=== PATIENT | female | born 1945 | race African-American/Black ===

== ENCOUNTER 2019-12-29 07:30 | Inpatient (IN) ==
--- NOTE | 2019-12-22 17:29 | EKG Report ---
Test Performed on : 12/22/2019 5:18:33 PM Test Reason : PAT Blood Pressure : / mmHG Vent. Rate : 090 BPM Atrial Rate : 090 BPM P-R Int : 146 ms QRS Dur : 128 ms QT Int : 388 ms P-R-T Axes : 032 -69 018 degrees QTc Int : 474 ms Normal sinus rhythm. Right bundle branch block Left anterior fascicular block Bifascicular block Moderate voltage criteria for LVH, may be normal variant Possible Lateral infarct , age undetermined Abnormal ECG No previous ECGs available Confirmed by Can Michaels MD ([id number]) on 12/22/2019 7:55:20 PM
[2019-12-22 18:18] LABS: BASO# 0.01 X1000 (0.0-0.2); BASO% 0.2 % (0.0-0.8); EOS# 0.08 X1000 (0.0-0.7); EOS% 1.4 % (0.0-10.0); HEMOGLOBIN 11.4 g/dL (12.0-16.0); IMM GRAN# 0.02 X1000 (0.0-0.04); IMM GRAN% 0.3 % (0.0-0.5); LYMPH# 1.52 X1000 (1.2-3.4); MCH 28.6 PG (27-31); MCV 95.5 FL (81-99); MONO# 0.31 X1000 (0.11-0.59); MONO% 5.3 % (1.7-9.3); MPV 9.6 FL (7.4-10.4); NEUT% 66.8 % (42.2-75.2); PLT 392 X1000 (130-400); RBC 3.98 XMIL (4.2-5.4); RDW 15.3 % (11.5-14.5); WBC 5.84 X1000 (4.8-10.8)
[2019-12-22 18:23] LABS: PROTIME 13.3 Seconds (11.0-16.0)
[2019-12-22 18:24] LABS: HEMOGLOBIN A1C 7.3 % (4.8-6.0); PTT 30.1 Seconds (22.3-41.8)
[2019-12-22 18:29] LABS: AGAP 13; BUN 10 mg/dL (8-22); CALCIUM 10.1 mg/dL (8.8-10.2); CHLORIDE 95 mmol/L (98-107); COSMO 277; CREATININE 0.7 mg/dL (0.5-0.9); ESTIMATED GFR > 60; GLUCOSE 140 mg/dL (70-104); POTASSIUM 3.7 mmol/L (3.5-5.1); SODIUM 138 mmol/L (136-145); TCO2 30 mmol/L (25-35)
[2019-12-22 21:23] LABS: URINE SOURCE CLEAN CATCH
[2019-12-22 21:31] LABS: BILIRUBIN URINE NEGATIVE (NEGATIVE); BLOOD URINE NEGATIVE (NEGATIVE); COLOR YELLOW; GLUCOSE URINE NEGATIVE (NEGATIVE); KETONE URINE NEGATIVE (NEGATIVE); LEUKOCYTES URINE NEGATIVE (NEGATIVE); NITRITE URINE NEGATIVE (NEGATIVE); PROTEIN URINE NEGATIVE (NEGATIVE); SP GRAVITY URINE 1.012; TURBIDITY URINE CLEAR (CLEAR); UROBILINOGEN URINE NORMAL (NORMAL)
[2019-12-22 21:32] LABS: UR EPITHELIAL CELLS <10 /HPF (<10); URINE BACTERIA NEGATIVE /HPF; URINE RBC <10 /HPF (<10); URINE WBC <10 /HPF (<10)
[2020-01-05] MEDS ORDERED: PEPCID ONE (05:40)
[2020-01-05] MEDS ORDERED: REGLAN ONE (05:40)
[2020-01-05] MEDS ORDERED: COLACE ONE (05:40)
[2020-01-05] MEDS ORDERED: CELEBREX ONE (05:40)
[2020-01-05] MEDS ORDERED: LYRICA ONE (05:40)
[2020-01-05] MEDS ORDERED: KEFZOL 1 GM/D5W 1 GM/50 ML IVPB ONE (05:40)
[2020-01-05] MEDS ORDERED: LR 1,000 ML ONE (05:41)
[2020-01-05] MEDS ORDERED: FENTANYL ONE ×2 (06:36→08:04)
[2020-01-05] MEDS ORDERED: DIPRIVAN 1% ONE ×2 (06:36→08:30)
[2020-01-05] MEDS ORDERED: XYLOCAINE-MPF 2% ONE (06:36)
[2020-01-05] MEDS ORDERED: NORCURON ONE (06:47)
[2020-01-05] MEDS ORDERED: QUELICIN (DOSE) ONE (06:47)
[2020-01-05] MEDS ORDERED: SODIUM CHLORIDE 0.9% 10 ML ONE (06:48)
[2020-01-05] MEDS ORDERED: TORADOL ONE (06:49)
[2020-01-05] MEDS ORDERED: MARCAINE 0.25% PF ONE (06:49)
[2020-01-05] MEDS ORDERED: EXPAREL 1.3% ONE (06:49)
[2020-01-05] MEDS ORDERED: DURAMORPH ONE (06:49)
[2020-01-05] MEDS ORDERED: NEOSPORIN G.U. IRRIGANT ONE (06:49)
[2020-01-05] MEDS ORDERED: CYKLOKAPRON 1,000 MG/NS 1,000 MG/100 ML IVPB ONE (06:49)
[2020-01-05] MEDS ORDERED: SODIUM CHLORIDE 0.9% ONE (06:49)
[2020-01-05] MEDS ORDERED: OFIRMEV 1000 MG/ISOTONIC SOLN 1,000 MG/100 ML BOTTLE ONE (07:57)
[2020-01-05] MEDS ORDERED: DECADRON ONE (07:57)
[2020-01-05 08:07] LABS: URINE SOURCE CATH
[2020-01-05] MEDS ORDERED: ROBINUL ONE (08:10)
[2020-01-05] MEDS ORDERED: NEOSTIGMINE ONE (08:11)
[2020-01-05] MEDS ORDERED: EPHEDRINE ONE (08:12)
[2020-01-05 08:16] LABS: BILIRUBIN URINE NEGATIVE (NEGATIVE); BLOOD URINE NEGATIVE (NEGATIVE); COLOR YELLOW; GLUCOSE URINE NEGATIVE (NEGATIVE); KETONE URINE NEGATIVE (NEGATIVE); LEUKOCYTES URINE NEGATIVE (NEGATIVE); NITRITE URINE NEGATIVE (NEGATIVE); PROTEIN URINE NEGATIVE (NEGATIVE); SP GRAVITY URINE 1.005; TURBIDITY URINE CLEAR (CLEAR); UROBILINOGEN URINE NORMAL (NORMAL)
[2020-01-05 08:18] LABS: UR EPITHELIAL CELLS <10 /HPF (<10); URINE BACTERIA NEGATIVE /HPF; URINE RBC <10 /HPF (<10); URINE WBC <10 /HPF (<10)
--- NOTE | 2020-01-05 08:38 | OPERATIVE NOTE ---
PROCEDURE DATE: 01/05/2020 PREOPERATIVE DIAGNOSIS: Left glenohumeral arthritis with chronic rotator cuff tear. POSTOPERATIVE DIAGNOSIS: Left glenohumeral arthritis with chronic rotator cuff tear. PROCEDURE: Left reverse shoulder arthroplasty with DePuy Delta Xtend size 12 press-fit stem, a 38+ 3 humeral cup, a 38+ 2 mm lateralized eccentric Glenosphere and a standard metaglene. SURGEON: Dr. Denny Alarcon. UTILIZATION REVIEWER: ILEANA Bond, who is necessary for proper positioning, manipulation of extremity during the case, retraction and improved efficiency. SECOND POWDER PRESS OPERATOR: Geo Garber RN. ANESTHESIA: General. IV FLUIDS: 1000 mL lactated Ringer. ESTIMATED BLOOD LOSS: 30 mL. COMPLICATIONS: None. INDICATION: Patient is a pleasant 74-year-old female with a chronic history of pain and discomfort of the left shoulder. Radiographic studies revealed large chronic rotator cuff tear, as well as some degenerative arthritic changes. Given the patient's findings, recommendation to proceed with left reverse shoulder arthroplasty was offered. Risks and benefits of surgery were explained, including the risks of anesthesia, , bleeding, infection, failure to relieve pain, postoperative stiffness, nerve injury, blood clots, and other imponderables. All questions were answered. The patient's family wished to proceed with surgery. DETAILS OF THE OPERATION: The patient was taken to the operating room and placed supine on the operating table. Once adequate anesthesia was obtained, patient placed in semi-Pierre beach-chair position. The left shoulder was subsequently prepped and draped in the usual sterile fashion. Standard deltopectoral incision made with a skin knife. Hemostasis was obtained using electrocautery. The deltopectoral interval was then developed. Retractors were then placed. The clavipectoral fascia was elevated and retractors placed deep to the conjoint tendon. The subscapularis tendon was then identified. Stay sutures placed. It was released approximately a centimeter medial to its insertion. The shoulder was then dislocated anteriorly. The patient had the evidence of the chronic retracted rotator cuff tear superiorly. A starting reamer was then placed in the intramedullary canal. This was followed by sequential reaming up to a size 12. The intramedullary guide with the proximal humeral cutting block was pinned in position with approximately 10 to 15 degrees of retroversion. The humeral head was resected. After this had been performed, a protective disk was placed. Attention then turned to the glenoid. Circumferential dissection was performed with a deep knife. A guide was then placed, position guide pin was placed and reaming was then conducted. Central hole was then dilated. The wound was copiously irrigated with antibiotic pulsatile lavage. A standard metaglene was then placed. Two locking screws were placed and two nonlocking screws. The wound was copiously irrigated once again. A 38+ 2 mm lateralize eccentric Glenosphere was then placed with eccentricity placed inferiorly. Attention then turned to the proximal humerus where an intramedullary guide was placed in position. Proximal humerus was reamed. The intramedullary canal was copiously irrigated with antibiotic pulsatile lavage. A size 12 Delta Xtend press-fit stem was then placed at approximately 15 degrees of retroversion. The trial cup size 38 +5 humeral cup had excellent stability and range of motion. Trial cup was removed. The wound was copiously irrigated once again with antibiotic pulsatile lavage. A size 38 +3 humeral cup was impacted. Shoulder was reduced, carried through range of motion. It had excellent stability and range of motion. Copious irrigation given once again with antibiotic pulsatile lavage. Exparel was placed in deep soft tissue. The wound was copiously irrigated once again. A #2 FiberWire was then used to repair the subscapularis tendon. The wound was copiously irrigated once again. It appeared remaining Exparel was placed in remaining deep soft tissue, as well as the subcutaneous tissue. Irrigation performed once again. The 2-0 Vicryl was used to repair the subcutaneous tissue, followed by running 2-0 Prolene. Benzoin and Steri-Strips applied. Adaptic, sterile 4 x 4s, ABD pad, and tape applied to the left shoulder. This was followed by a shoulder immobilizer. All counts were correct. Patient tolerated the procedure well, and was transferred to the recovery room in stable condition. cc: Denny Alarcon MD
[2020-01-05] MEDS: DILAUDID ONE ×4 (09:05→09:18)
[2020-01-05] MEDS ORDERED: NS 1,000 ML ONE (09:05)
--- NOTE | 2020-01-05 09:30 | Diag Imaging Result Doc PS360 ---
EXAM: SHOULDER 1 VIEW LEFT 01/05/2020 HISTORY: L TSA TECHNIQUE: AP portable at 0918 COMMENT: There is a total shoulder arthroplasty on the left. There is no evidence of acute fracture or other definite acute bony abnormalities. IMPRESSION: Postsurgical changes. Electronically signed by Omer Mitchell 01/05/2020 9:27 AM
[2020-01-05] MEDS ORDERED: OXY IR PO PRN (10:00)
[2020-01-05] MEDS ORDERED: MORPHINE IV PRN ×3 (10:00)
[2020-01-05] MEDS ORDERED: NS 1,000 ML IV SCH (10:00)
[2020-01-05] MEDS ORDERED: ZOFRAN PO PRN (10:00)
[2020-01-05] MEDS: TYLENOL PO SCH ×2 (12:26→19:50)
[2020-01-05] MEDS ORDERED: CYKLOKAPRON 1,000 MG/NS 1,000 MG/100 ML IVPB IV ONE (13:00)
[2020-01-05] MEDS ORDERED: KLOR-CON PO SCH (21:00)
[2020-01-05] MEDS ORDERED: LOPRESSOR PO SCH (21:00)
[2020-01-05] MEDS ORDERED: HYDROCHLOROTHIAZIDE PO SCH (21:00)
[2020-01-05] MEDS ORDERED: XALATAN 0.005% OPH SOLN BOTH EYES SCH (21:00)
[2020-01-05] MEDS ORDERED: PRINIVIL PO SCH (21:00)
[2020-01-05] MEDS ORDERED: JANUVIA PO SCH (21:00)
[2020-01-05] MEDS ORDERED: LIPITOR PO SCH (21:00)
[2020-01-05] MEDS: GLUCOPHAGE PO SCH (21:10)
[2020-01-05] MEDS: OXY IR PO PRN (21:12)
[2020-01-05] MEDS: PERIDEX MT SCH (21:13)
[2020-01-05] MEDS: GLUCOTROL PO SCH (21:17)
[2020-01-06] MEDS: TYLENOL PO SCH ×2 (04:57→06:44)
[2020-01-06 06:40] LABS: HEMATOCRIT 32.8 % (37.0-47.0); HEMOGLOBIN 9.7 g/dL (12.0-16.0)
[2020-01-06] MEDS: OXY IR PO PRN ×2 (06:45→09:28)
[2020-01-06 06:52] LABS: AGAP 12; BUN 21 mg/dL (8-22); CALCIUM 8.7 mg/dL (8.8-10.2); CHLORIDE 101 mmol/L (98-107); COSMO 277; ESTIMATED GFR > 60; GLUCOSE 94 mg/dL (70-104); POTASSIUM 4.7 mmol/L (3.5-5.1); SODIUM 137 mmol/L (136-145); TCO2 24 mmol/L (25-35)
[2020-01-06 07:54] VITALS: BP 99/60
--- NOTE | 2020-01-06 07:54 | ORTHOPAEDICS PROGRESS NOTE ---
DATE: 01/06/2020 SUBJECTIVE: Ms. Maya is postop day 1 of a left reverse total shoulder arthroplasty. She is resting comfortably in bed at this time and states that she is doing well with no complaints. She will be discharged home today. OBJECTIVE: Ms. Maya is resting comfortably in bed with no complaints. She is in no acute distress. Her sling is in place to her left upper extremity. She has full sensation of her left hand and is able to residential mental health worker my fingers. Her capillary refill is less than 2 seconds. She has full flexion and extension of all her fingers. Her surgical dressing is dry and intact to her left shoulder. ASSESSMENT: Postop day 1 of a left reverse total shoulder arthroplasty. PLAN: Ms. Maya will be discharging home today after physical therapy. She will be completing 2 weeks of physical therapy at home before we arrange her outpatient physical therapy. All her questions were answered this morning as well as I discussed discharge planning with her daughter who was at bedside yesterday. Dictated by ILEANA Bond for Denny Alarcon MD cc: Denny Alarcon MD
--- NOTE | 2020-01-06 07:55 | ORTHOPAEDICS PROGRESS NOTE ---
DATE: 01/05/2020 ADDENDUM: For Ms. Maya's pain control, she will be discharged home on oxycodone. She currently takes Suboxone for addiction and this is prescribed to her by Dr. Mon. She says that she was informed by Dr. Mon to discontinue her Suboxone for approximately 5 days and take the oxycodone pain medication. At that time, she will be discontinuing oxycodone and resuming her Suboxone. Dictated by ILEANA Bond for Denny Alarcon MD cc: Denny Alarcon MD
[2020-01-06] MEDS ORDERED: SUBOXONE 8 MG/2 MG FILM SL SCH (09:00)
[2020-01-06] MEDS: PERIDEX MT SCH (09:05)
[2020-01-06] MEDS: GLUCOTROL PO SCH ×2 (09:05→09:08)
[2020-01-06] MEDS: GLUCOPHAGE PO SCH (09:05)
== END 2020-01-06 11:49 | disposition home health service (06) | DRG 483 ==
LOC: SURHOLD 01-05 05:13 → 4N 01-05 08:07
PROVIDERS: ADMIT Orthopaedic Surgery Adult Reconstructive Orthopaedic Surgery; ATTEND Orthopaedic Surgery Adult Reconstructive Orthopaedic Surgery